=== PATIENT | male | born 1960 | race Caucasian/White ===

== ENCOUNTER 2017-08-27 11:19 | Day surgery (SDC) | payer MEDICARE ==
[~2017-08-27 11:19] MED LIST: PROPOFOL INJ 200 MG/20 ML VIAL IV ONE
--- NOTE | 2017-08-27 12:31 | Operative Report ---
Operative Report DATE OF SURGERY: 08/27/17 Operative Report: The risks, benefits and alternatives of the procedure including the risks of bleeding, perforation requiring surgery are explained to the patient in detail and informed consent is obtained. Patient is taken back to the endoscopy suite and placed in the left, lateral decubital position. Timeout was called. Propofol medication is administered. A rectal examination is done which did not reveal any masses, tears or fissures. An Olympus videoscope was inserted into the patient's rectum. The scope was then carefully advanced all the way to the cecum. The cecum was identified by the usual anatomical landmarks including the ileocecal valve as well as the appendiceal office. Photodocumentation is obtained. The scope was then sequentially pulled back via the various segments of the colon including the ascending colon, hepatic flexure, transverse colon, splenic flexure, descending colon and finally into the rectosigmoid portions of the colon. Retroflexion maneuver is performed. The risks benefits and alternatives of the procedure explained to the patient in detail and informed consent is obtained.A GIF Olympus video scope was inserted into the patient's mouth and hypopharynx, the esophagus is identified intubated and insufflated, the scope was then advanced through the esophagus stomach and duodenum, retroflexion maneuver is done ,the esophagus stomach and first and second portions of the duodenum examined PREOPERATIVE DIAGNOSIS: Blood in stool. Colorectal cancer screening. 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 Gastritis status post biopsy. Hiatal hernia. Right side colon Inflammation status post biopsy. Internal hemorrhoids. Spastic colon. Suggestive of IBS OPERATION: Colonoscopy with biopsy. EGD with biopsy SURGEON: OMAR WILLIAMSON ANESTHESIA: LMAC TISSUE REMOVED OR ALTERED: As noted above. COMPLICATIONS: None. ESTIMATED BLOOD LOSS: None. INTRAOPERATIVE FINDINGS: As noted above. PROCEDURE: Patient tolerated the procedure well. No immediate postprocedure complications are noted. Patient discharged in good condition. Discharge date 08/27/2017. Discharge diet: Regular. Discharge activity: Regular. 2-3 week follow-up to discuss findings. We will wait on the pathology. Patient is instructed call the office or proceed to the emergency room should there be any further problems or questions. 5 year surveillance colonoscopy.
[2017-08-27 12:46] VITALS: BP 92/61
== END 2017-08-27 13:00 | disposition home or self-care (01) ==
LOC: END 11:19
PROVIDERS: ATTEND Internal Medicine Gastroenterology
DX: K62.5 Hemorrhage of anus and rectum (principal); K22.719 Barrett's esophagus with dysplasia, unspecified; K29.70 Gastritis, unspecified, without bleeding; K44.9 Diaphragmatic hernia without obstruction or gangrene; K64.8 Other hemorrhoids; K58.9 Irritable bowel syndrome, unspecified
CPT/HCPCS: 43239; 45380; 88305 ×2; J2704; 813

== ENCOUNTER 2017-11-05 08:40 | Day surgery (SDC) | payer MEDICARE ==
[2017-11-05 11:27] VITALS: BP 107/79
--- NOTE | 2017-11-05 12:39 | Operative Report ---
Operative Report DATE OF SURGERY: 11/05/17 Operative Report: The risks benefits and alternatives of the procedure explained to the patient in detail and informed consent is obtained.A GIF Olympus video scope was inserted into the patient's mouth and hypopharynx, the esophagus is identified intubated and insufflated ,the scope was then advanced through the esophagus stomach and duodenum, retroflexion maneuver is done, the esophagus stomach and first and second portions of the duodenum examined PREOPERATIVE DIAGNOSIS: History of Breen's esophagus POSTOPERATIVE DIAGNOSIS: Breen's esophagus noted, small islands, these are treated with radiofrequency ablation OPERATION: EGD with ablation SURGEON: OMAR WILLIAMSON ANESTHESIA: LMAC TISSUE REMOVED OR ALTERED: None. COMPLICATIONS: None. ESTIMATED BLOOD LOSS: None. INTRAOPERATIVE FINDINGS: As noted above. PROCEDURE: Patient tolerated the procedure well. No immediate postprocedure complications are noted. Patient discharged in good condition. Discharge date 11/05/2017. Discharge diet: Regular. Discharge activity: Regular. 2-3 week follow-up to discuss findings. Patient is instructed call the office or proceed to the emergency room should there be any further problems or questions. We will wait on the pathology.
== END 2017-11-05 11:15 | disposition home or self-care (01) ==
LOC: END 08:40
PROVIDERS: ATTEND Internal Medicine Gastroenterology
DX: K22.719 Barrett's esophagus with dysplasia, unspecified (principal); F17.210 Nicotine dependence, cigarettes, uncomplicated; F41.9 Anxiety disorder, unspecified; F32.9 Major depressive disorder, single episode, unspecified; K64.8 Other hemorrhoids; Z79.899 Other long term (current) drug therapy
CPT/HCPCS: 43270; J2704; 731

== ENCOUNTER → 2018-10-07 | Outpatient (CLI) | payer MEDICARE ==
--- NOTE | 2018-10-08 09:40 | XCELERA REPORT ---
[address] [address] Lower Extremity Venous Evaluation Procedure: A bilateral duplex scan of the lower extremity veins was performed. The evaluation included responses to compression and other maneuvers with patient in the supine and standing positions to assess venous insufficiency. Right Sided Venous Evaluation Deep venous system evaluation shows patent veins with no significant reflux identified. Sapheno Femoral junction: no reflux. Greater Saphenous vein, Proximal thigh: reflux: no reflux. Greater Saphenous vein, mid thigh: reflux:no reflux. Greater Saphenous vein, Distal thigh: reflux:no reflux. Greater Saphenous vein, Proximal below knee: reflux: none Greater Saphenous vein, Mid below knee: reflux: none. Greater Saphenous vein, Distal below knee: reflux: no reflux. No significant Perforators identified. Left Sided Venous Evaluation Deep venous system evaluation shows patent veins with no significant reflux identified. Sapheno Femoral junction: no reflux. Greater Saphenous vein, Proximal thigh: reflux: no reflux. Greater Saphenous vein, mid thigh: reflux:no reflux. Greater Saphenous vein, Distal thigh: reflux:no reflux. Greater Saphenous vein, Proximal below knee: reflux: none Greater Saphenous vein, Mid below knee: reflux: none. Greater Saphenous vein, Distal below knee: reflux: no reflux. No significant Perforators identified. Interpretation Summary No duplex evidence of DVT or obstruction in the bilateral lower extremities. No duplex evidence of deep or superficial reflux. Name: ED STOCKTON Age: 57 yrs Gender: Male : 1960 Patient Status: Outpatient Patient Location: Study Date: 10/07/2018 02:48 PM Reason For Study: LT CALF ULCER Ordering Physician: DEACON WILSON Performed By: Baldemar Simpson : DEACON WILSON > Deacon Wilson
--- NOTE | 2018-10-08 09:59 | XCELERA REPORT ---
[address] [address] Lower Extremity Arterial Evaluation Name: ED STOCKTON Age: 57 yrs Gender: Male : 1960 Patient Status: Outpatient Patient Location: Study Date: 10/07/2018 02:24 PM Procedure: A color flow and duplex scan of the lower extremity arteries was performed bilaterally with velocity and waveform anaylsis. 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 Ankle Brachial index 1.14. . Left Side Arterial Evaluation Normal velocity and triphasic waveforms noted from the Common Femoral artery to the Popliteal artery. Biphasic with normal velocity, minimal broadening in the infrageniculate arteries. Ankle Brachial index 1.08. Interpretation Summary No hemodynamically significant lesions in the right lower extremity only, on duplex imaging, at rest. Mild hemodynamically significant lesions in the left lower extremity only, on duplex imaging, at rest. The study is close to normal, with slight changes in the left infrageniculate vessels only. '' ARNULFO's are normal suggesting no significant arterial compromise. : DEACON WILSON > Deacon Wilson
== END ==
LOC: SP 14:00
PROVIDERS: ATTEND Surgery
DX: L97.222 Non-pressure chronic ulcer of left calf with fat layer exposed (principal)
CPT/HCPCS: 93922; 93925; 93970

== ENCOUNTER → 2018-10-25 | Outpatient (CLI) | payer MEDICARE ==
--- NOTE | 2018-10-25 16:29 | RADIOLOGY REPORT (SQ) ---
EXAM DESCRIPTION: CHEST PA/LATERAL COMPLETED DATE/TIME: 10/25/2018 2:47 pm REASON FOR STUDY: CHEST PAIN COMPARISON: 2014. TECHNIQUE: Frontal and lateral radiographic views of the chest acquired. NUMBER OF VIEWS: Two view. LIMITATIONS: None. FINDINGS: LUNGS AND PLEURA: Chronic or recurrent interstitial prominence diffusely. No discrete nod ules or masses. No consolidating pneumonia. No pneumothorax or significant pleural fluid. MEDIASTINUM AND HILAR STRUCTURES: No masses or contour abnormalities. HEART AND VASCULAR STRUCTURES: Heart normal size. No evidence for failure. BONES: No acute findings. HARDWARE: None in the chest. OTHER: No other significant finding. IMPRESSION: Suspect chronic interstitial disease. Similar appearance compared to prior from several years ago. TECHNICAL DOCUMENTATION: JOB ID: [id number] [employer]- All Rights Reserved Reading location - IP/workstation name: [email or web address]
== END ==
LOC: OD 14:23
PROVIDERS: ATTEND Family Medicine
DX: R07.9 Chest pain, unspecified (principal)
CPT/HCPCS: 71046

== ENCOUNTER → 2018-10-25 | Outpatient (CLI) | payer MEDICARE ==
[2018-10-25 15:21] LABS: ABSOLUTE BASOPHILS # (AUTO) 0.2 10^3/uL (0.0-0.2); ABSOLUTE EOSINOPHILS # (AUTO) 0.2 10^3/uL (0.0-0.6); ABSOLUTE LYMPHOCYTES (AUTO) 2.5 10^3/uL (0.5-4.7); ABSOLUTE MONOCYTES (AUTO) 0.7 10^3/uL (0.1-1.4); ABSOLUTE NEUT (AUTO) 5.3 10^3/uL (1.7-8.2); BASOPHILS % (AUTO) 2.2 % (0-2); EOSINOPHILS % (AUTO) 2.3 % (0-6); HEMATOCRIT 38.2 % (37.9-51.0); HEMOGLOBIN 12.8 g/dL (13.5-17.0); LYMPHOCYTES % (AUTO) 28.1 % (13-45); MEAN CORPUSCULAR HEMOGLOBIN 29.5 pg (27.0-33.4); MEAN CORPUSCULAR HGB CONC 33.4 g/dL (32.0-36.0); MEAN CORPUSCULAR VOLUME 88 fl (80-97); MONOCYTES % (AUTO) 7.6 % (3-13); PLATELET COUNT 247 10^3/uL (150-450); RED BLOOD COUNT 4.33 10^6/uL (4.35-5.55); RED CELL DISTRIBUTION WIDTH 14.5 % (11.5-14.0); SEGMENTED NEUTROPHILS % (AUTO) 59.8 % (42-78); TOTAL CELLS COUNTED % (AUTO) 100 %; WHITE BLOOD COUNT 8.9 10^3/uL (4.0-10.5)
[2018-10-25 15:45] LABS: ALBUMIN 4.3 g/dL (3.5-5.0); ALKALINE PHOSPHATASE 89 U/L (38-126); ANION GAP 8 (5-19); ASPARTATE AMINO TRANSFERASE 19 U/L (17-59); BILIRUBIN,DIRECT 0.1 mg/dL (0.0-0.4); BILIRUBIN,TOTAL 0.3 mg/dL (0.2-1.3); BLOOD UREA NITROGEN 14 mg/dL (7-20); C-REACTIVE PROTEIN 8.3 mg/L (<10.0); CALCIUM 9.5 mg/dL (8.4-10.2); CARBON DIOXIDE 31 mmol/L (22-30); CHLORIDE 100 mmol/L (98-107); GLUCOSE 114 mg/dL (75-110); POTASSIUM 4.6 mmol/L (3.6-5.0); TOTAL PROTEIN 7.6 g/dL (6.3-8.2)
[2018-10-25 16:27] LABS: ERYTHROCYTE SEDIMENTATION RATE 21 mm/hr (0-20)
--- NOTE | 2018-10-25 16:54 | RADIOLOGY REPORT (SQ) ---
EXAM DESCRIPTION: TIBIA FIBULA LEFT COMPLETED DATE/TIME: 10/25/2018 2:47 pm REASON FOR STUDY: NON PRESSURE ULCER OF LEFT CALF L97.222 NON-PRESSURE CHRONIC ULCER OF LEFT CALF W FAT LAYER COMPARISON: None. NUMBER OF VIEWS: Two views. TECHNIQUE: Two radiographic images acquired of the left tibia and fibula to include the knee and ank le in at least one projection. LIMITATIONS: None. FINDINGS: MINERALIZATION: Normal. BONES: No acute fracture or dislocation. No osseus lesions. SOFT TISSUES: No soft tissue swelling, subcutaneous emphysema or radiopaque foreign body. OTHER: No other finding. IMPRESSION: No acute osseous abnormality of the left tibia and fibula. TECHNICAL DOCUMENTATION: JOB ID: [id number] [employer]- All Rights Reserved Reading location - IP/workstation name: [email or web address]
== END ==
LOC: OD 14:13
PROVIDERS: ATTEND Surgery
DX: L97.222 Non-pressure chronic ulcer of left calf with fat layer exposed (principal)
CPT/HCPCS: 36415; 80053; 85025; 85652; 86140